=== PATIENT | female | born 1940 | race Caucasian/White ===

== ENCOUNTER 2017-11-08 07:30 | Inpatient (IN) ==
[2017-11-02 12:01] LABS: Appearance,Urine CLEAR; Bacteria,Urine 0 /hpf (0); Bilirubin,Urine NEG (NEG); Color,Urine YELLOW; Glucose,Urine (UA) NEGATIVE (NEG); Leukocyte Esterase,Urine 25 /uL (NEG); Mucus,Urine FEW /hpf (0); Protein,Urine NEG (NEG); Specific Gravity,Urine 1.013 (1.000-1.035); Urine Blood NEG mg/dL (<0.03); Urine RBC < 1 /hpf (0-1); Urine Squamous Epithelial Cell 1 /hpf (0-4); Urine Transitional Epi Cells < 1 /hpf (0-2); Urine WBC 1 /hpf (0-4); Urobilinogen,Urine NEG (NEG)
[2017-11-02 12:59] LABS: Basophils # (Auto) 0 K/mcL (0.0-0.3); Basophils % (Auto) 0.3 % (0.0-2.0); Eosinophils # (Auto) 0.3 K/mcL (0.0-0.7); Eosinophils % (Auto) 2.5 % (0.0-7.0); Granulocytes % (Auto) 57.4 % (38.0-78.0); Lymphocytes # (Auto) 3.2 K/mcL (1.5-4.8); Lymphocytes % (Auto) 31.5 % (15.5-49.0); Mean Cell Volume 89.8 fL (80.0-100.0); Mean Corpuscular HGB Conc 33.5 g/dL (31.0-36.0); Mean Corpuscular Hemoglobin 30.1 pg (26.0-34.0); Monocytes # (Auto) 0.9 K/mcL (0.1-0.9); Monocytes % (Auto) 8.3 % (1.0-12.0); Platelet Count 225 K/mcL (140-440); RBC 3.97 M/mcL (4.00-5.20); Red Cell Distribution Width 13.8 % (11.5-14.5)
[2017-11-02 13:38] LABS: ALT/SGPT 12 U/l (0-40); Albumin 4.6 gm/dL (3.2-5.2); Albumin/Globulin Ratio 1.5 (1.0-2.3); Alkaline Phosphatase 38 U/L (39-117); Blood Urea Nitrogen 16 mg/dl (8-23)
[~2017-11-08 07:30] MED LIST: ceFAZolin 1 GM VIAL IV SCH
[2017-11-08] MEDS ORDERED: SCOPOLAMINE 1 PATCH PATCH TOPICAL ONE (10:32)
[2017-11-08] MEDS ORDERED: fentaNYL 250 MCG/5 ML VIAL IV ONE (10:50)
[2017-11-08] MEDS ORDERED: KETAMINE 100 MG/ML ML IV ONE (10:50)
[2017-11-08] MEDS ORDERED: MIDAZOLAM 2 MG/2 ML VIAL IV ONE (10:50)
[2017-11-08] MEDS ORDERED: PROPOFOL 200 MG/20 ML VIAL IV ONE (10:50)
[2017-11-08] MEDS ORDERED: GLYCOPYRROLATE 0.2 MG/ML VIAL IV ONE (10:50)
[2017-11-08] MEDS ORDERED: DEXAMETHASONE 10 MG/ML VIAL IV ONE (10:50)
[2017-11-08] MEDS ORDERED: LIDOCAINE HCL/PF 100 MG/5 ML SYRINGE IV ONE (10:50)
[2017-11-08] MEDS ORDERED: SUCCINYLCHOLINE 20 MG/ML ML IV ONE (10:50)
[2017-11-08] MEDS ORDERED: ONDANSETRON 4 MG/2 ML VIAL IV ONE (10:50)
[2017-11-08] MEDS ORDERED: PHENYLEPHRINE 10 MG/ML VIAL IV ONE (10:50)
[2017-11-08] MEDS ORDERED: BENZOCAINE/MENTHOL 1 LOZENGE PO PRN (12:39)
[2017-11-08] MEDS ORDERED: BUPIVACAINE 0.25% 50 ML VIAL IJ ONE (13:57)
[2017-11-08] MEDS ORDERED: THROMBIN (BOVINE) 5,000 UNIT VIAL TOPICAL ONE (13:57)
[2017-11-08] MEDS ORDERED: MEPERIDINE 25 MG/ML SYRINGE IV PRN (14:24)
[2017-11-08] MEDS ORDERED: ONDANSETRON 4 MG/2 ML VIAL IV PRN (14:24)
[2017-11-08] MEDS ORDERED: PROMETHAZINE 25 MG/ML VIAL IV PRN (14:24)
[2017-11-08] MEDS ORDERED: KETOROLAC 15 MG/ML VIAL IV PRN (14:24)
[2017-11-08] MEDS ORDERED: IPRATROPIUM/ALBUTEROL 3 ML AMPUL.NEB NEB PRN (14:24)
[2017-11-08] MEDS ORDERED: ePHEDrine 50 MG/ML AMPUL IV PRN (14:24)
[2017-11-08] MEDS ORDERED: ACETAMINOPHEN 1,000 MG/100 ML BOTTLE IV ONE (14:24)
[2017-11-08] MEDS ORDERED: METHOCARBAMOL 1,000 MG/10 ML VIAL IV PRN (14:24)
[2017-11-08] MEDS ORDERED: LACTATED RINGERS 1,000 ML IV SCH (14:30)
--- NOTE | 2017-11-08 14:43 | Brief Operative Note ---
Date of procedure: 11/08/17 Pre-op diagnosis: spinal stenosis Post-op diagnosis: same Procedure: decompression and fusion Grafts/Implants: Yes (nuvasive) Anesthesia: GETA Complications: none Surgeon: Roberto Forbes Pricing Supervisor: Farooq Zhang Estimated blood loss (cc): 100 Specimens Removed/Pathology: none sent Condition: stable Disposition: PACU
[2017-11-08] MEDS: fentaNYL 100 MCG/2 ML VIAL IV PRN ×6 (15:05→15:48)
[2017-11-08] MEDS ORDERED: GELATIN SPONGE,ABSORBABLE 1 GM POWDER TOPICAL ONE (15:25)
--- NOTE | 2017-11-08 15:56 | XRay Report ---
CLINICAL INFORMATION: Reason for Exam:XLIF WITH POSTERIOR FUSION COMPARISON: Lumbar MRI from 06/10/2017 FINDINGS: Multiple digital images from the OR. Lumbar numbering will be by convention established on the 06/10/2017 lumbar MRI report. L2-3 fusion was performed. Final images shows ray cage in proper position within the central L2-3 disc region and pedicle screws and short interbody struts expected location. Alignment is anatomic. Severe L3-4 degenerative disc disease is noted IMPRESSION: L2-3 fusion changes. Alignment is anatomic. Interpreted and Authenticated by: Neeraj Escoto 11/08/17
[2017-11-08] MEDS: 0.9 % SODIUM CHLORIDE 1,000 ML IV SCH (16:29)
[2017-11-08] MEDS: oxyCODONE/APAP 5/325MG TABLET PO PRN ×3 (17:49→22:59)
[2017-11-08] MEDS ORDERED: HYDROcodone/APAP 5/325MG TABLET PO PRN (18:03)
[2017-11-08] MEDS: ceFAZolin 1 GM VIAL IV SCH (19:33)
[2017-11-08] MEDS ORDERED: ONDANSETRON ODT 4 MG TABLET SL PRN (20:14)
[2017-11-08] MEDS ORDERED: FLUOCINONIDE TOPICAL PRN (20:15)
[2017-11-08] MEDS ORDERED: ACETAMINOPHEN 1300 MG PO PRN (20:15)
[2017-11-08] MEDS: MELATONIN 3 MG PO SCH ×2 (21:58→22:01)
[2017-11-08] MEDS: AMITRIPTYLINE 25 MG TABLET PO SCH (21:58)
[2017-11-08] MEDS: LATANOPROST OPHTH DROPS 2.5ML BOTTLE OU SCH (21:58)
[2017-11-08] MEDS: SIMVASTATIN 40 MG TABLET PO SCH (21:58)
[2017-11-08] MEDS: VIT A,C & E/LUTEIN/MINERALS TABLET PO SCH (21:58)
[2017-11-09] MEDS: 0.9 % SODIUM CHLORIDE 1,000 ML IV SCH ×2 (01:49→07:32)
[2017-11-09] MEDS: ceFAZolin 1 GM VIAL IV SCH (03:00)
[2017-11-09] MEDS: oxyCODONE/APAP 5/325MG TABLET PO PRN ×5 (03:00→23:49)
[2017-11-09] MEDS: METHOCARBAMOL 750 MG TABLET PO PRN ×2 (03:13→10:54)
[2017-11-09 05:43] LABS: Blood Urea Nitrogen 8 mg/dl (8-23)
[2017-11-09] MEDS: LEVOTHYROXINE 88 MCG TABLET PO SCH (07:19)
[2017-11-09] MEDS: OMEPRAZOLE 20 MG CAPSULE PO SCH (07:19)
--- NOTE | 2017-11-09 07:22 | Operative Note ---
DATE OF OPERATION: 11/08/2017 PREOPERATIVE DIAGNOSIS: Lumbar stenosis, instability L3-L4. POSTOPERATIVE DIAGNOSIS: Lumbar stenosis, instability L3-L4. OPERATION PROPOSED: 1. Lumbar interbody fusion via anterior lateral retroperitoneal approach with application of structural device interspace at L3-L4. 2. Posterior non-segmental instrumentation using a NuVasive medial cortical screw construct L3-L4, posterior/posterolateral fusion L3-L4, decompression with decompression of central canal with the lateral recess, and neural foramen at L3-L4. OPERATION PERFORMED: 1. Lumbar interbody fusion via anterior lateral retroperitoneal approach with application of structural device interspace at L3-L4. 2. Posterior non-segmental instrumentation using a NuVasive medial cortical screw construct L3-L4, posterior/posterolateral fusion L3-L4, decompression with decompression of central canal with the lateral recess, and neural foramen at L3-L4. OPERATING SURGEON: Roberto Forbes MD RN FACULTY: Farooq Zhang PA-C. INDICATIONS: This is a lady who has had disabling radicular/claudication symptoms. She has significant stenosis and instability at L3-L4. We would like to proceed with lumbar decompression and fusion. OPERATION IN DETAIL: Informed consent was obtained. She was taken to the operating room where she was provided with appropriate anesthetic and prophylactic antibiotics. She was carefully positioned. Her flank was prepped sterilely. A retroperitoneal approach to the L3-L4 interspace was performed. I dissected through the psoas using EMG guidance. I continued to sequentially dilate, again using EMG monitoring to locate the nerve roots. I docked at the L3-L4 interspace. I then incised the annulus. I passed a Matthews across the disc space, freeing the contralateral annulus. I then sequentially dilated using dilating trials. I selected a size 10 x 50 x 22 NuVasive cage. This XLIF cage was filled with morcellized bone graft and impacted into the site prepared for it to allow for___. The wounds were irrigated extensively. I closed with a 0 Vicryl in interrupted fashion, 2-0 inverted deep dermal, and running subcuticular. The patient was then turned to the prone position. A midline incision was made. I dissected down to expose the spinous process and lamina L3-L4. The decompression was performed by removing the inferior one-half of the spinous process and lamina of L3 and the superior portion of L4. I then worked my way into the lateral recess, and opening the neural foramen, decompressing the central canal, lateral recess, and opening into the foramen at L3-L4. I then placed the posterior instrumentation, this being a medial cortical screw construct. I identified the appropriate starting position using fluoroscopy and anatomic landmarks. A bur was used to score the cortex. I then passed a drill cephalad and laterally, again using EMG guidance. I then tapped and placed an appropriate length medial cortical screw on the right and on the left. A posterolateral fusion was then performed. I extensively decorticated the posterolateral aspect of the spine. I packed morcellized graft into and against the decorticated posterolateral aspect of the spine to allow for fusion. The procedure was completed by compressing across the interbody graft. I tightened and torqued the nirav into the top-loading pedicle screws. The wounds had been irrigated thoroughly with pulsatile lavage prior to placing the bone graft. I closed over a deep drain with an 0 Vicryl in interrupted fashion, 2-0 Vicryl inverted deep dermal, and running subcuticular. The procedure was tolerated well. No complications. Estimated blood loss is 150 mL. GDD:dayna Job ID: [id number] Doc ID: [id number] Roberto Forbes MD
[2017-11-09] MEDS ORDERED: ACETAMINOPHEN 1,000 MG/100 ML BOTTLE IV ONE (07:47)
[2017-11-09] MEDS ORDERED: KETOROLAC 15 MG/ML VIAL IV ONE (07:48)
--- NOTE | 2017-11-09 07:52 | Orthopedic Progress Note ---
Subjective Patient information: Note initiated : 11/09/17 at 7:50 am Service Date, if different from initiated Date: [] Patient: Lorna Joseph 77 y/o F admitted on 11/08/17 for L3-4 Medical Cortical Screws XLIF W/Posterior Fusi. Chief Complaint: [] Principal diagnosis: spinal stenosis Objective Vital signs: Vital Signs Temp Pulse Resp BP Pulse Ox 11/09/17 07:17 97.8 F 80 134/60 100 11/09/17 03:15 97.3 F 86 16 143/72 99 11/08/17 23:15 98.1 F 88 16 128/86 95 11/08/17 18:45 97.3 F 83 20 133/73 99 11/08/17 17:57 77 133/79 99 11/08/17 17:44 78 16 133/79 98 11/08/17 17:10 75 137/69 99 11/08/17 16:40 71 124/70 99 11/08/17 16:25 73 124/66 100 11/08/17 16:10 97.5 F 73 16 123/70 99 11/08/17 16:00 97.2 F 74 14 135/76 94 11/08/17 15:55 76 122/73 11/08/17 15:40 97.2 F 73 14 135/76 99 11/08/17 15:25 97.2 F 66 14 132/63 100 11/08/17 15:10 97.2 F 67 16 119/64 100 11/08/17 15:05 97.2 F 66 16 139/63 100 11/08/17 15:00 97.2 F 67 16 133/73 100 11/08/17 14:55 97.2 F 68 20 134/62 100 11/08/17 08:05 98.4 F 61 14 161/69 99 Intake and Output 11/08/17 11/09/17 11/09/17 21:59 05:59 13:59 Intake Total 4300 / 4300 2032 / 2032 800 / 800 Output Total 1887 / 1887 1553 / 1553 Balance 2413 / 2413 480 / 480 778 / 778 Intake: IV 933 / 933 Sodium Chloride 0.9% 1,000 ml @ 933 / 933 100 mls/hr IV .Q10H MADELIN Rx#: [id number] Oral 1800 / 1800 1100 / 1100 800 / 800 IV - Manual Only 2500 / 2500 Output: Drainage 37 / 37 3 / 3 Lower Medial Back 37 / 37 3 / Urine Catheter Amount 1800 / 1800 1550 / 1550 Void Amount 50 / 50 Other: Meal Dinner Percent of Meal Consumed 25% # Voids 1 Weight 197 lb Intake & Output: Intake & Output 11/08/17 11/09/17 11/09/17 21:59 05:59 13:59 Intake Total 4300 / 4300 2033 / 2033 800 / 800 Output Total 1887 / 1887 1553 / 1553 Balance 2413 / 2413 480 / 480 778 / 778 Weight 197 lb Intake: IV 933 / 933 Sodium Chloride 0.9% 1,000 ml @ 933 / 933 100 mls/hr IV .Q10H MADELIN Rx#: [id number] Oral 1800 / 1800 1100 / 1100 800 / 800 IV - Manual Only 2500 / 2500 Output: Drainage 37 / 37 3 Lower Medial Back 37 / 37 Urine Catheter Amount 1800 / 1800 1550 / 1550 Void Amount 50 / 50 Other: Meal Dinner Percent of Meal Consumed 25% # Voids 1 Incision: Yes clean and dry Neurological exam IM: Yes neurovascular intact - Labs CBC & BMP: 11/09/17 04:30 11/09/17 04:30 Labs: Orthopedic Labs 11/02/17 10:40 PT 13.2 INR 1.0 11/09/17 11/02/17 04:30 10:40 Hgb 9.2 L 11.9 L Hct 27.8 L 35.6 L Assessment and Plan (1) Low back pain status post decomp and fusion. mobilze with pt Status: Acute Qualifiers:
[2017-11-09] MEDS ORDERED: [UNRECOGNIZED DRUG - OTHER] PO SCH (09:00)
[2017-11-09] MEDS: SPIRONOLACTONE 25 MG TABLET PO SCH (09:06)
[2017-11-09] MEDS: FENOFIBRATE 43 MG CAPSULE PO SCH (09:07)
[2017-11-09] MEDS: MULTIVIT,THER IRON,CA,FA & MIN 1 TABLET PO SCH (09:07)
[2017-11-09] MEDS: CALCIUM (OYSTER SHELL) 500 MG TABLET PO SCH (09:07)
[2017-11-09] MEDS: HYDROCHLOROTHIAZIDE 12.5 MG CAPSULE PO SCH (09:07)
[2017-11-09] MEDS: VITAMIN D3 1,000 UNIT TABLET PO SCH (09:07)
[2017-11-09] MEDS: VIT A,C & E/LUTEIN/MINERALS TABLET PO SCH ×2 (09:07→20:10)
[2017-11-09] MEDS: [UNRECOGNIZED DRUG - OTHER] PO SCH (09:08)
[2017-11-09] MEDS: METOPROLOL SUCCINATE 50 MG TAB.XL.24H PO SCH ×2 (09:10→20:10)
[2017-11-09] MEDS: 0.9 % SODIUM CHLORIDE 10 ML SYRINGE IV SCH ×2 (13:23→22:21)
[2017-11-09] MEDS ORDERED: BISACODYL 10 MG SUPP.RECT PR PRN (19:05)
[2017-11-09] MEDS ORDERED: MAGNESIUM HYDROXIDE 30 ML ORAL.SUSP PO PRN (19:05)
[2017-11-09] MEDS: AMITRIPTYLINE 25 MG TABLET PO SCH (20:10)
[2017-11-09] MEDS: DOCUSATE SODIUM 100 MG CAPSULE PO SCH (20:10)
[2017-11-09] MEDS: SIMVASTATIN 40 MG TABLET PO SCH (20:10)
[2017-11-09] MEDS: MELATONIN 3 MG PO SCH (20:12)
[2017-11-09] MEDS: LATANOPROST OPHTH DROPS 2.5ML BOTTLE OU SCH (20:12)
[2017-11-10] MEDS: oxyCODONE/APAP 5/325MG TABLET PO PRN ×3 (04:17→13:35)
[2017-11-10] MEDS: 0.9 % SODIUM CHLORIDE 10 ML SYRINGE IV SCH (05:32)
--- NOTE | 2017-11-10 06:43 | Discharge Summary ---
Providers - Providers Patient information: Note initiated : 11/10/17 at 6:40 am Service Date, if different from initiated Date: [] Patient: Lorna Joseph 77 y/o F admitted on 11/08/17 for L3-4 Medical Cortical Screws XLIF W/Posterior Fusi. Chief Complaint: [S/P L3-4 XLIF with posterior instrumentation] Patient is doing well and ambulates well. No particular complaints. Denies any lower extremity weakness or paresthesias. Date of admission: 11/08/17 Discharge date: 11/10/17 Attending physician: Roberto Forbes Hospitalization Hospital course: The patient was returned to the tang post-operatively. She was provided routine pain management and maintained on prophylactic abx. She ambulated daily with PT. At the time of discharge she is doing well and her pain is well-controlled. She is discharged to f/ with me in approximately 2 weeks. She will call with any questions or concerns whatsoever. Discharge diagnosis: S/P L3-4 XLIF with posterior instrumentation Reason for admission: L3-4 spinal stenosis Procedures: The patient was taken to the operating room on the date of admission where she underwent a L3-4 XLIF with posterior instrumentation. The procedure was tolerated well with no complications. Complications: NONE Exam - Exam Incision healing: Yes Incision draining: No Incision red: No Incision swollen: No Incision inflamed: No Clean and dry: Yes Weight bearing status: full Ortho Discharge Plan - General - Patient Instructions Diet: Regular Diet Activity: weight bearing as tolerated Dressing Care: May shower in 2 days, Other (Remove dry dressing prior to showerine and replace with dry dressing after showers.) - Follow Up Plan Follow Up Appointments: Farooq Zhang PA-C [Physician Party Plan Demonstrator] - 11/23/17 11:00 am Disposition: Home, Self-Care Prognosis: Good Rehab Potential: Good I certify that the patient requires SNF services: No Overall status at discharge: patient is back to baseline - Orders For Discharge Prescriptions: HYDROcodone/APAP 5/325MG [Deweese 5-325Mg] 1 - 2 tab PO Q4-6H PRN #60 tab PRN Reason: pain Methocarbamol [Robaxin] 750 mg PO Q6HP PRN #30 tab PRN Reason: Muscle Spasm Pending Studies Resuscitation Status Full Code Diet Regular Diet Start Mon Feb 5 Dinner Amitriptyline HCl (Elavil) 25 mg PO QHS [facility] Last Admin: 11/09/17 20:10 Dose: 25 mg Admin: 11/08/17 21:58 Dose: 25 mg Calcium Carbonate/Glycine (Oscal) 1,500 mg PO DAILY [facility] Last Admin: 11/09/17 09:07 Dose: 1,500 mg Docusate Sodium (Colace) 100 mg PO BID [facility] Last Admin: 11/09/17 20:10 Dose: 100 mg Fenofibrate (Antara) 129 mg PO DAILY [facility] Last Admin: 11/09/17 09:07 Dose: 129 mg Hydrochlorothiazide (Oretic) 12.5 mg PO DAILY [facility] Last Admin: 11/09/17 09:07 Dose: 12.5 mg Iron Carb/Multivit/[place]/Folic Acid (Multivitamin W/Minerals) 1 tab PO DAILY [facility] Last Admin: 11/09/17 09:07 Dose: 1 tab Latanoprost (Xalatan Ophth Drops) 1 gtt OU QHS [facility] Last Admin: 11/09/17 20:12 Dose: 1 drop Admin: 11/08/17 21:58 Dose: 1 drop Levothyroxine Sodium (Synthroid) 88 mcg PO QAMAC [facility] Last Admin: 11/09/17 07:19 Dose: 88 mcg Methocarbamol (Robaxin) 750 mg PO Q6HP PRN PRN Reason: Muscle Spasm Last Admin: 11/09/17 10:54 Dose: 750 mg Admin: 11/09/17 03:13 Dose: 750 mg Metoprolol Succinate (Toprol Xl) 100 mg PO [facility] Last Admin: 11/09/17 20:10 Dose: 100 mg Admin: 11/09/17 09:10 Dose: Not Given Morphine Sulfate (Morphine) 0 mg IV Q1HP PRN PRN Reason: PAIN LEVEL > 6 Last Admin: 11/09/17 10:54 Dose: 4 mg Admin: 11/09/17 07:48 Dose: 4 mg Admin: 11/09/17 03:13 Dose: 4 mg Admin: 11/08/17 22:11 Dose: 4 mg Admin: 11/08/17 18:47 Dose: 4 mg Admin: 11/08/17 17:00 Dose: 4 mg Admin: 11/08/17 16:27 Dose: 2 mg Multivitamins/Minerals (Ocuvite) 1 tab PO BID [facility] Last Admin: 11/09/17 20:10 Dose: 1 tab Admin: 11/09/17 09:07 Dose: 1 tab Admin: 11/08/17 21:58 Dose: 1 tab Omeprazole (Prilosec) 40 mg PO QAMAC [facility] Last Admin: 11/09/17 07:19 Dose: 40 mg Oxycodone/Acetaminophen (Percocet 5-325 Mg) 1 - 2 tab PO Q4HP PRN PRN Reason: PAIN LEVEL 3-6 Last Admin: 11/10/17 04:17 Dose: 2 tab Admin: 11/09/17 23:49 Dose: 2 tab Admin: 11/09/17 17:22 Dose: 2 tab Admin: 11/09/17 13:22 Dose: 2 tab Admin: 11/09/17 07:19 Dose: 2 tab Admin: 11/09/17 03:00 Dose: 2 tab Admin: 11/08/17 22:59 Dose: 2 tab Admin: 11/08/17 18:48 Dose: 1 tab Admin: 11/08/17 17:49 Dose: 1 tab Melatonin [Melatin] (3 Mg) 1 dose PO HS [facility] Last Admin: 11/09/17 20:12 Dose: 1 dose Admin: 11/08/17 22:01 Dose: 1 dose Karyn-Stim 1 Tab 1 dose PO DAILY [facility] Last Admin: 11/09/17 09:08 Dose: 1 dose Simvastatin (Zocor) 40 mg PO HS [facility] Last Admin: 11/09/17 20:10 Dose: 40 mg Admin: 11/08/17 21:58 Dose: 40 mg Sodium Chloride (Saline Flush) 10 ml IV Q8 [facility] Last Admin: 11/10/17 05:32 Dose: Admin: 11/09/17 22:21 Dose: Admin: 11/09/17 13:23 Dose: Spironolactone (Aldactone) 12.5 mg PO DAILY [facility] Last Admin: 11/09/17 09:06 Dose: 12.5 mg Vitamin D (Vitamin D3) 1,000 unit PO DAILY [facility] Last Admin: 11/09/17 09:07 Dose: 1,000 unit Shift Summary 11/10/17 05:35 Shift Summary by Waqas Champion VSS on RA. Ambulates independently w/FWW. Steady on feet. Mendiola removed yesterday during dayshift. Pt still experiencing urinary retention. Last PVR 628mL, pt returned to BR and voided 100mL. States it is normal for her to empty slowly in little increments. Educated on importance of not over distending bladder, however pt did not want to continue to try and empty bladder. Dressing to low back CDI. DAVID drain to be removed today. 25mL sanguinous fluid emptied this shift. No complaints of numbness or tingling. Pain controlled w/2 tabs Percocet q4h. Last dose @ 0415. No IV access. Uses IS w/reminders. Productive cough noted this am upon waking. Tolerating diet well. Possible d/c today. Initialized on 11/10/17 05:35 - END OF NOTE
[2017-11-10] MEDS: LEVOTHYROXINE 88 MCG TABLET PO SCH (07:37)
[2017-11-10] MEDS: METHOCARBAMOL 750 MG TABLET PO PRN ×2 (07:37→13:35)
[2017-11-10] MEDS: OMEPRAZOLE 20 MG CAPSULE PO SCH (07:37)
[2017-11-10] MEDS: SPIRONOLACTONE 25 MG TABLET PO SCH (08:28)
[2017-11-10] MEDS: FENOFIBRATE 43 MG CAPSULE PO SCH (08:29)
[2017-11-10] MEDS: CALCIUM (OYSTER SHELL) 500 MG TABLET PO SCH (08:29)
[2017-11-10] MEDS: MULTIVIT,THER IRON,CA,FA & MIN 1 TABLET PO SCH (08:30)
[2017-11-10] MEDS: VITAMIN D3 1,000 UNIT TABLET PO SCH (08:30)
[2017-11-10] MEDS: DOCUSATE SODIUM 100 MG CAPSULE PO SCH (08:30)
[2017-11-10] MEDS: VIT A,C & E/LUTEIN/MINERALS TABLET PO SCH (08:30)
[2017-11-10] MEDS: HYDROCHLOROTHIAZIDE 12.5 MG CAPSULE PO SCH (08:31)
[2017-11-10] MEDS: [UNRECOGNIZED DRUG - OTHER] PO SCH (08:31)
== END 2017-11-10 13:43 | disposition home or self-care (01) | DRG 460 ==
LOC: MEDSUR 07:59
PROVIDERS: ADMIT Orthopaedic Surgery Orthopaedic Surgery of the Spine; ATTEND Orthopaedic Surgery Orthopaedic Surgery of the Spine
PROC: LUMDECF (ICD-10-PCS; 2017-11-08 10:45)

== ENCOUNTER 2018-12-21 04:55 | Inpatient (IN) ==
[2018-12-13 15:00] LABS: Basophils # (Auto) 0 K/mcL (0.0-0.3); Basophils % (Auto) 0.5 % (0.0-2.0); Blood Urea Nitrogen 14 mg/dl (8-23); Eosinophils # (Auto) 0.3 K/mcL (0.0-0.7); Eosinophils % (Auto) 4.3 % (0.0-7.0); Granulocytes % (Auto) 57.6 % (38.0-78.0); Lymphocytes # (Auto) 2.2 K/mcL (1.5-4.8); Mean Cell Volume 87.2 fL (80.0-100.0); Mean Corpuscular HGB Conc 32.3 g/dL (31.0-36.0); Monocytes # (Auto) 0.8 K/mcL (0.1-0.9); Monocytes % (Auto) 9.6 % (1.0-12.0); Platelet Count 336 K/mcL (140-440); RBC 3.77 M/mcL (4.00-5.20); Red Cell Distribution Width 13.9 % (11.5-14.5)
[2018-12-13 15:17] LABS: Appearance,Urine CLEAR; Bilirubin,Urine NEG (NEG); Color,Urine STRAW; Glucose,Urine (UA) NEGATIVE (NEG); Leukocyte Esterase,Urine NEG /uL (NEG); Protein,Urine NEG (NEG); Urine Blood NEG mg/dL (<0.03); Urobilinogen,Urine NEG (NEG)
[2018-12-13 15:49] LABS: Estimated Average Glucose(eAG) 117 mg/dL; Hemoglobin A1C 5.7 % HGB (4.0-6.0)
[2018-12-21] MEDS ORDERED: oxyCODONE 10 MG TAB.ER.12H PO SCH (07:00)
[2018-12-21] MEDS ORDERED: PREGABALIN 75 MG CAPSULE PO SCH (07:00)
[2018-12-21] MEDS ORDERED: CELECOXIB 200 MG CAPSULE PO SCH (07:00)
[2018-12-21] MEDS ORDERED: ceFAZolin 1 GM VIAL IV SCH (07:00)
[2018-12-21] MEDS ORDERED: 0.9 % SODIUM CHLORIDE 9 ML, KETOROLAC 30 MG, ROPIVACAINE HCL/PF 49.5 ML, EPINEPHrine 0.... IJ SCH (07:00)
[2018-12-21] MEDS ORDERED: PROPOFOL 200 MG/20 ML VIAL IV ONE (07:50)
[2018-12-21] MEDS ORDERED: MIDAZOLAM 5 MG/5 ML VIAL IV ONE (07:50)
[2018-12-21] MEDS ORDERED: ONDANSETRON 4 MG/2 ML VIAL IV ONE (07:50)
[2018-12-21] MEDS ORDERED: DEXAMETHASONE 10 MG/ML VIAL IV ONE (07:50)
[2018-12-21] MEDS ORDERED: LIDOCAINE HCL/PF 100 MG/5 ML SYRINGE IV ONE (07:50)
[2018-12-21] MEDS ORDERED: TRANEXAMIC ACID 1,000 MG/10 ML VIAL IV ONE ×2 (07:50→09:24)
[2018-12-21] MEDS ORDERED: ePHEDrine 50 MG/ML AMPUL IV ONE (07:50)
[2018-12-21] MEDS ORDERED: ROPIVACAINE HCL/PF 20 ML VIAL IJ ONE (07:50)
[2018-12-21] MEDS ORDERED: MEPERIDINE 25 MG/ML SYRINGE IV PRN (09:08)
[2018-12-21] MEDS ORDERED: ACETAMINOPHEN 1,000 MG/100 ML BOTTLE IV ONE (09:08)
[2018-12-21] MEDS ORDERED: ePHEDrine 50 MG/ML AMPUL IV PRN (09:08)
[2018-12-21] MEDS ORDERED: NALOXONE HCL 0.4 MG/ML VIAL IV PRN (09:08)
[2018-12-21] MEDS ORDERED: PROMETHAZINE 25 MG/ML VIAL IV PRN (09:08)
[2018-12-21] MEDS ORDERED: METOPROLOL TARTRATE 5 MG/5 ML VIAL IV PRN (09:08)
[2018-12-21] MEDS ORDERED: diphenhydrAMINE 50 MG/ML VIAL IV PRN (09:08)
[2018-12-21] MEDS ORDERED: ATROPINE SULFATE 0.4 MG/ML VIAL IV PRN (09:08)
[2018-12-21] MEDS ORDERED: ONDANSETRON 4 MG/2 ML VIAL IV PRN ×2 (09:08→09:24)
[2018-12-21] MEDS ORDERED: FLUMAZENIL 0.1 MG/ML ML IV PRN (09:08)
[2018-12-21] MEDS ORDERED: IPRATROPIUM/ALBUTEROL 3 ML AMPUL.NEB NEB PRN (09:08)
[2018-12-21] MEDS ORDERED: fentaNYL 100 MCG/2 ML VIAL IV PRN (09:08)
[2018-12-21] MEDS ORDERED: LACTATED RINGERS 1,000 ML IV SCH (09:15)
--- NOTE | 2018-12-21 09:23 | Brief Operative Note ---
Date of procedure: 12/21/18 Pre-op diagnosis: Right knee severe OA Post-op diagnosis: same Procedure: Right robotic assisted total knee arthroplasty Grafts/Implants: Yes (Janny Triathlon 4 CR femur, 4 tibia, 10mm insert, 33 patella) Anesthesia: spinal, GLMA Findings: arthritis Complications: none Surgeon: Luis Peo Assistant Strength Coach: Roberto Duong Estimated blood loss (cc): 30 Specimens Removed/Pathology: none sent Condition: stable Disposition: PACU
[2018-12-21] MEDS ORDERED: FLEETS ADULT ENEMA PR PRN (09:24)
[2018-12-21] MEDS ORDERED: MAGNESIUM HYDROXIDE 30 ML ORAL.SUSP PO PRN (09:24)
[2018-12-21] MEDS ORDERED: BISACODYL 10 MG SUPP.RECT PR PRN (09:24)
[2018-12-21] MEDS ORDERED: BENZOCAINE/MENTHOL 1 LOZENGE PO PRN (09:24)
[2018-12-21] MEDS ORDERED: FLUOCINONIDE TOPICAL PRN (09:28)
[2018-12-21] MEDS ORDERED: ONDANSETRON 4 MG ODT TABLET SL PRN (09:40)
--- NOTE | 2018-12-21 10:06 | Operative Note ---
DATE OF OPERATION: 12/21/2018 PREOPERATIVE DIAGNOSIS: Right knee severe osteoarthritis. POSTOPERATIVE DIAGNOSIS: Right knee severe osteoarthritis. PROCEDURE PERFORMED: Right robotic-assisted total knee arthroplasty placing a Janny Triathlon size 4 cruciate retaining femoral component, size 4 tibial baseplate, a 33 mm patellar button with a 10 mm tibial insert. SURGEON: Luis Poe M.D. CLAMP TRUCK DRIVER: Jimmy Duong PA-C. ANESTHESIA: Spinal plus general. DRAINS: None. SPECIMENS: Bone cuts which were discarded. BLOOD LOSS: 30 mL. COMPLICATIONS: None. POSTOPERATIVE CONDITION: Stable. INDICATIONS FOR SURGERY: This is a 78-year-old female with severe knee pain. Radiographs showed [id number] arthritis. FINDINGS AT SURGERY: She had severe [id number] multi-compartment osteoarthritis. Post implantation showed good limb alignment, patellar tracking, and joint stability. PROCEDURE IN DETAIL: The patient had been seen preoperatively and informed consent had been obtained after discussion of risks and benefits of surgery. Risks including, but not limited to, bleeding, possibly requiring transfusion; infection, possibly requiring implant removal and prolonged IV antibiotics; injury to nerves, blood vessels, other surrounding structures; anesthetic risks; incomplete or no resolution of symptoms; DVT and pulmonary embolus risks; and the possibility of needing further revision joint surgery. She understood and wished to proceed. Correct operative site was marked and then patient was taken to the operating room after spinal anesthesia was given. She had LMA general given. Then, the right lower extremity was carefully prepped and draped in normal sterile fashion. A time-out was performed verifying patient name, operative site, and plan. Esmarch was used to exsanguinate the extremity and tourniquet was inflated. Midline incision was made with a scalpel through skin and subcutaneous tissue. Irrisept was irrigated and then a medial parapatellar arthrotomy made. A large joint effusion was suctioned. A limited subperiosteal exposure was done of the anterior medial tibia and then anterior horns of the meniscus were removed, as well as retropatellar fat pad. We did a resection of the patella first measuring 22, post-resection was an 11. We placed a cut protector. We then placed femoral and tibial checkpoints, as well as made two stab incisions over the tibia and two over the femur, and bicortical pins placed and the arrays were connected. Our hip center of rotation was checked. Green probe was used to identify medial and lateral malleoli, as well as do double checks of our femoral and tibial check points. Blue probe was used to do our mapping. A rongeur was used to remove osteophytes and then we checked our flexion-extension gaps with the spoons. It required us to elevate the tibia significantly and then added 1 degree of varus to the femur which gave us 17 mm gaps, except for 18 mm medially with flexion. We did not want to take a degree of external rotation out of the femur as this would affect her patellar tracking. We went ahead then and used the robotic arm to make our bone cuts. The tibia was externally rotated as bone coverage would allow and prepared with the boss reamer and keel punch. Keeled tibial trial was placed. Posterior osteophytes removed with a curved osteotome and curved curet. Femoral trial was impacted and then pinned into place. Peg holes were drilled. A 9 insert trial was placed and the knee was taken into extension. We were around 5 degrees short of full extension. We then drilled our patella size 33, medialized maximally and then patellar trial placed. We checked our patellar tracking, which was good, so we went ahead and removed trial implants. Definitive implants were opened except for the tibial insert. We irrigated the joint with Irrisept while antibiotic cement was mixed. After a minute we pulse lavaged with saline. We cemented the tibia followed by the femur. Excess cement was removed. The 9 insert trial was placed. The knee was taken into extension and then the patellar button was cemented. While cement was hardening, we removed checkpoints. We filled the joint with Irrisept and then injected pain cocktail in the pericapsular and subcutaneous tissues. After cement was fully hardened, we pulse lavaged with saline. We removed the 9 insert trial and went up to a size 10. This gave us about 8 degrees short of full extension, so we went ahead and opened a size 10 insert. We flexed the knee up and removed the 10 insert trial. We injected pain cocktail in the posterior capsule and then irrigated with Irrisept. The tibial insert was impacted and carefully verified to be fully seated. After a minute we pulse lavaged with saline. The knee was taken into 45 degrees of flexion. Interrupted #2 FiberWire [id number] were used around the patella, interrupted #1 Vicryl [id number] around the inferior quadrant, running #1 Vicryl was used for patellar tendon and quad tendon. Final Irrisept irrigation was done, after a minute final pulse lavage, and 2-0 Monocryl for subcutaneous and jonatan for skin. Xeroform and sterile dressings were applied. Tourniquet was released. The patient was awakened, extubated, and transferred to recovery in stable condition. BJB:will Job ID: [id number] Doc ID: [id number] Luis Poe MD
--- NOTE | 2018-12-21 10:08 | XRay Report ---
CLINICAL INFORMATION: Post-op total knee. COMPARISON: None. FINDINGS: Total knee prostheses is anatomically aligned. No osseous abnormality. Periarticular gas and soft tissue swelling seen as expected IMPRESSION: Negative Interpreted and Authenticated by: Neeraj Escoto 12/21/18
[2018-12-21] MEDS: 0.9 % SODIUM CHLORIDE 1,000 ML IV SCH ×2 (10:41→22:16)
[2018-12-21] MEDS: KETOROLAC 15 MG/ML VIAL IV SCH ×3 (12:54→23:06)
[2018-12-21] MEDS: HYDROmorphone 2 MG/ML VIAL IV PRN ×3 (15:22→21:19)
[2018-12-21] MEDS: METOPROLOL SUCCINATE 50 MG TAB.XL.24H PO SCH (15:24)
[2018-12-21] MEDS: 0.9 % SODIUM CHLORIDE 10 ML SYRINGE IV SCH ×2 (16:33→21:27)
[2018-12-21] MEDS: ceFAZolin 1 GM VIAL IV SCH ×2 (17:36→23:07)
[2018-12-21] MEDS: oxyCODONE/APAP 5/325MG TABLET PO PRN ×2 (17:36→21:31)
[2018-12-21] MEDS: DOCUSATE SODIUM 100 MG CAPSULE PO SCH (20:11)
[2018-12-21] MEDS: VIT A,C & E/LUTEIN/MINERALS TABLET PO SCH (20:11)
[2018-12-21] MEDS: SENNOSIDES 1 TABLET PO SCH (20:11)
[2018-12-21] MEDS: MELATONIN 3 MG TABLET PO SCH (20:12)
[2018-12-21] MEDS: SIMVASTATIN 20 MG TABLET PO SCH (20:13)
[2018-12-21] MEDS: LATANOPROST OPHTH DROPS 2.5ML BOTTLE OU SCH (20:13)
[2018-12-21] MEDS: FENOFIBRATE 43 MG CAPSULE PO SCH (20:13)
[2018-12-21] MEDS: AMITRIPTYLINE 25 MG TABLET PO SCH (20:13)
[2018-12-21] MEDS: POLYETHYLENE GLYCOL 3350 17 GM PACKET PO PRN (20:14)
[2018-12-21] MEDS: ASPIRIN 325 MG ENTERIC COATED TABLET PO SCH (20:15)
[2018-12-22] MEDS: oxyCODONE/APAP 5/325MG TABLET PO PRN ×3 (01:19→09:48)
[2018-12-22] MEDS: HYDROmorphone 2 MG/ML VIAL IV PRN ×2 (01:20→19:56)
[2018-12-22] MEDS: KETOROLAC 15 MG/ML VIAL IV SCH ×2 (06:02→11:44)
[2018-12-22] MEDS: 0.9 % SODIUM CHLORIDE 10 ML SYRINGE IV SCH ×4 (06:03→23:27)
[2018-12-22] MEDS: LEVOTHYROXINE 88 MCG TABLET PO SCH (07:08)
[2018-12-22] MEDS: OMEPRAZOLE 20 MG CAPSULE PO SCH (07:09)
[2018-12-22] MEDS: VIT A,C & E/LUTEIN/MINERALS TABLET PO SCH ×2 (08:28→19:55)
[2018-12-22] MEDS: HYDROCHLOROTHIAZIDE 25 MG TABLET PO SCH (08:28)
[2018-12-22] MEDS: SPIRONOLACTONE 25 MG TABLET PO SCH (08:28)
[2018-12-22] MEDS: DOCUSATE SODIUM 100 MG CAPSULE PO SCH ×2 (08:28→19:55)
[2018-12-22] MEDS: CALCIUM (OYSTER SHELL) 500 MG TABLET PO SCH (08:28)
--- NOTE | 2018-12-22 08:56 | Discharge Summary ---
Providers - Providers Patient information: Note initiated : 12/22/18 at 8:55 am Service Date, if different from initiated Date: [] Patient: Lorna Joseph 78 y/o F admitted on 12/21/18 for Right Bienvenido Total Knee Arthroplasty. Chief Complaint: [] Discharge date: 12/22/18 Hospitalization Hospital course: patient was admitted for a total knee arthroplasty. She was admitted on the day of the procedure. after the procedure she was transferred for further pain medication and Iv antibiotics and therapy. patient spent one on the floor prior to discharge. patient was discharged to home with appropriate pain medication. she will take aspirin for DVT prophylaxis. She'll follow up with orthopedics in 2 weeks. She will attend outpatient physical therapy. Discharge diagnosis: knee OA Exam - Exam Weight bearing status: as tolerated Ortho Discharge - TKA - Patient Instructions Diet: Regular Diet Activity: activity as tolerated Total Knee Protocol: For Total Knee: Start ROM NICOLETTE with stationary bike or rocking chair. Work on gaining full extension of knee. Posterior dislocation precautions provided. Hip abductor strengthening and gait training instructions provided. Apply Cryocuff as instructed. Dressing Care: May shower in 2 days - Follow Up Plan Follow Up Appointments: Roberto Duong PA-C [Physician Operations Officer [facility]] - 01/05/19 10:00 am Disposition: Home, Self-Care Prognosis: Good Rehab Potential: Good Overall status at discharge: patient is progressing back to baseline - Orders For Discharge Prescriptions: Aspirin [Ecotrin] 325 mg PO BID #30 tab.ec HYDROcodone/ACETAMINOPHEN [[place] 10-325 Tablet] 1 - 2 each PO Q4-6HP PRN #90 tab PRN Reason: Pain Additional Discharge Orders: Physical Therapy at Discharge - General Location: None Selected Walker Location: None Selected Pending Studies Resuscitation Status Full Code Diet Regular Diet Start WedDec 21 [id number] Amitriptyline HCl (Elavil) 25 mg PO QHS [facility] Last Admin: 12/21/18 20:13 Dose: 25 mg Documented by: RBLEW Aspirin (Ecotrin) 325 mg PO BID [facility] Last Admin: 12/21/18 20:15 Dose: 325 mg Documented by: RBLEW Calcium Carbonate/Glycine (Oscal) 1,500 mg PO DAILY [facility] Last Admin: 12/22/18 08:28 Dose: 1,500 mg Documented by: [email or web address] Docusate Sodium (Colace) 100 mg PO BID [facility] Last Admin: 12/22/18 08:28 Dose: 100 mg Documented by: [email or web address] Admin: 12/21/18 20:11 Dose: 100 mg Documented by: CARLOS Fenofibrate (Antara) 129 mg PO [facility] Last Admin: 12/21/18 20:13 Dose: 129 mg Documented by: CARLOS Hydrochlorothiazide (Oretic) 25 mg PO DAILY [facility] Last Admin: 12/22/18 08:28 Dose: 25 mg Documented by: DAVID Hydromorphone HCl (Dilaudid) 0 mg IV Q2HP PRN PRN Reason: PAIN LEVEL > 6 Last Admin: 12/22/18 01:20 Dose: 1 mg Documented by: Admin: 12/21/18 21:19 Dose: 1 mg Documented by: Admin: 12/21/18 19:14 Dose: 1 mg Documented by: Admin: 12/21/18 15:22 Dose: 1 mg Documented by: [email or web address] Ketorolac Tromethamine (Toradol) 15 mg IV Q6 [facility] Stop: 12/23/18 06:01 Last Admin: 12/22/18 06:02 Dose: 15 mg Documented by: Admin: 12/21/18 23:06 Dose: 15 mg Documented by: Admin: 12/21/18 17:38 Dose: Not Given Documented by: Admin: 12/21/18 12:54 Dose: 15 mg Documented by: JONNATHAN Latanoprost (Xalatan Ophth Drops) 1 gtt OU QHS [facility] Last Admin: 12/21/18 20:13 Dose: 1 drop Documented by: CARLOS Levothyroxine Sodium (Synthroid) 88 mcg PO QAMAC [facility] Last Admin: 12/22/18 07:08 Dose: 88 mcg Documented by: DAVID Melatonin (Melatonin 3mg Tablet) 6 mg PO [facility] Last Admin: 12/21/18 20:12 Dose: 6 mg Documented by: CARLOS Metoprolol Succinate (Toprol Xl) 100 mg PO [facility] Last Admin: 12/21/18 15:24 Dose: Not Given Documented by: CARLOS Multivitamins/Minerals (Ocuvite) 1 tab PO BID [facility] Last Admin: 12/22/18 08:28 Dose: 1 tab Documented by: [email or web address] Admin: 12/21/18 20:11 Dose: 1 tab Documented by: CARLOS Omeprazole (Prilosec) 40 mg PO QAMAC [facility] Last Admin: 12/22/18 07:09 Dose: 40 mg Documented by: [email or web address] Oxycodone/Acetaminophen (Percocet 5-325 Mg) 0 tab PO Q4HP PRN PRN Reason: PAIN LEVEL 3-6 Last Admin: 12/22/18 06:01 Dose: 2 tab Documented by: Admin: 12/22/18 01:19 Dose: 2 tab Documented by: Admin: 12/21/18 21:31 Dose: 2 tab Documented by: Admin: 12/21/18 17:36 Dose: 2 tab Documented by: JONNATHAN Polyethylene Glycol (Miralax) 17 gm PO DAILYP PRN PRN Reason: Constipation Last Admin: 12/21/18 20:14 Dose: 17 gm Documented by: CARLOS Senna (Senokot) 2 tab PO HS [facility] Last Admin: 12/21/18 20:11 Dose: 2 tab Documented by: CARLOS Simvastatin (Zocor) 20 mg PO HS [facility] Last Admin: 12/21/18 20:13 Dose: 20 mg Documented by: CARLOS Sodium Chloride (Saline Flush) 10 ml IV Q8 [facility] Last Admin: 12/22/18 06:03 Dose: 10 ml Documented by: Admin: 12/21/18 21:27 Dose: Not Given Documented by: Admin: 12/21/18 16:33 Dose: Not Given Documented by: JONNATHAN Spironolactone (Aldactone) 25 mg PO DAILY [facility] Last Admin: 12/22/18 08:28 Dose: 25 mg Documented by: [email or web address] Shift Summary 12/22/18 03:49 Shift Summary by Yaneth Lockett VSHarish. A&Ox4. Medicated for pain with 1mg IV Dilaudid x 2, PO Percocet x 2, scheduled Toradol. Ice on/off. Reports improvement in pain. Dressing to R knee is C/D/I. Up with [facility] and [facility] to [facility], wears attends r/t urgency/stress incont. Requested PRN Miralax, last BM 12/20/18. Uses call light to make needs known. IV to L FA is SL. No nausea. Initialized on 12/22/18 03:49 - END OF NOTE
[2018-12-22] MEDS ORDERED: [UNRECOGNIZED DRUG - OTHER] PO SCH (09:00)
[2018-12-22] MEDS ORDERED: [UNRECOGNIZED DRUG - OTHER] PO SCH (09:00)
[2018-12-22] MEDS: POLYETHYLENE GLYCOL 3350 17 GM PACKET PO PRN (09:04)
[2018-12-22] MEDS: ASPIRIN 325 MG ENTERIC COATED TABLET PO SCH (09:13)
[2018-12-22] MEDS: GABAPENTIN 300 MG CAPSULE PO SCH ×3 (11:07→19:55)
[2018-12-22] MEDS ORDERED: diphenhydrAMINE 25 MG CAPSULE PO PRN (11:47)
[2018-12-22] MEDS: HYDROcodone/APAP 10/325MG TABLET PO PRN ×3 (14:09→23:25)
[2018-12-22] MEDS ORDERED: WARFARIN 5 MG TABLET PO ONE (15:00)
[2018-12-22] MEDS: METOPROLOL SUCCINATE 50 MG TAB.XL.24H PO SCH (19:55)
[2018-12-22] MEDS: SIMVASTATIN 20 MG TABLET PO SCH (19:55)
[2018-12-22] MEDS: SENNOSIDES 1 TABLET PO SCH (19:55)
[2018-12-22] MEDS: FENOFIBRATE 43 MG CAPSULE PO SCH (19:56)
[2018-12-22] MEDS: AMITRIPTYLINE 25 MG TABLET PO SCH (19:56)
[2018-12-22] MEDS: MELATONIN 3 MG TABLET PO SCH (19:56)
[2018-12-22] MEDS: LATANOPROST OPHTH DROPS 2.5ML BOTTLE OU SCH (19:57)
[2018-12-23] MEDS: HYDROcodone/APAP 10/325MG TABLET PO PRN ×2 (05:01→09:17)
[2018-12-23] MEDS: 0.9 % SODIUM CHLORIDE 10 ML SYRINGE IV SCH (06:10)
--- NOTE | 2018-12-23 07:58 | Orthopedic Progress Note ---
Orthopedics - Auxillary Note - Subjective Patient Information: Note initiated : 12/23/18 at 7:56 am Service Date, if different from initiated Date: [] Patient: Lorna Joseph 78 y/o F admitted on 12/21/18 for Right Bienvenido Total Knee Arthroplasty. Chief Complaint: No c/o. Pain much better contolled today. bandages c/d/i nvi-distal Vital Signs Temp Pulse Resp BP BP Pulse Ox 12/23/18 03:47 97 F 12/23/18 03:39 70 18 118/60 94 12/22/18 23:19 97.6 F 62 18 112/63 92 12/22/18 23:00 62 12/22/18 19:29 98.2 F 66 18 138/58 98 12/22/18 14:28 98.3 F 65 128/59 99 12/22/18 11:41 98.2 F 65 14 124/61 99 12/22/18 08:21 98.0 F 84 14 133/67 94 Intake and Output 12/22/18 12/23/18 12/23/18 21:59 05:59 13:59 Intake Total 1600 200 Output Total 200 Balance 1400 200 Intake: Oral 1600 200 Output: Void Amount 200 Other: Urine Appearance Clear Urine Color Bright Yellow Urine Odor Normal # Voids 1 1 Weight 209 lb Laboratory Results - last 24 hr 12/23/18 04:50 PT 14.5 INR 1.1 s/p L TKA-stable -mobilize with PT -Discharge to home today. switched to coumadin. d/c asa
[2018-12-23] MEDS: OMEPRAZOLE 20 MG CAPSULE PO SCH (09:58)
[2018-12-23] MEDS: DOCUSATE SODIUM 100 MG CAPSULE PO SCH (09:58)
[2018-12-23] MEDS: VIT A,C & E/LUTEIN/MINERALS TABLET PO SCH (09:59)
[2018-12-23] MEDS: CALCIUM (OYSTER SHELL) 500 MG TABLET PO SCH (09:59)
[2018-12-23] MEDS: GABAPENTIN 300 MG CAPSULE PO SCH (09:59)
[2018-12-23] MEDS: HYDROCHLOROTHIAZIDE 25 MG TABLET PO SCH ×2 (09:59→10:02)
[2018-12-23] MEDS: SPIRONOLACTONE 25 MG TABLET PO SCH ×2 (10:36→10:41)
[2018-12-23] MEDS: LEVOTHYROXINE 88 MCG TABLET PO SCH (10:37)
[2018-12-23] MEDS ORDERED: WARFARIN 5 MG TABLET PO SCH (14:00)
[2018-12-26] MEDS ORDERED: ERGOCALCIFEROL (VITAMIN D2) 50,000 UNIT CAPSULE PO SCH (09:00)
== END 2018-12-23 12:45 | disposition home or self-care (01) | DRG 470 ==
LOC: MEDSUR 04:55
PROVIDERS: ADMIT Orthopaedic Surgery; ATTEND Orthopaedic Surgery